=== PATIENT | female | born 1960 | race Caucasian/White ===

== ENCOUNTER 2017-03-07 11:43 | Inpatient (IN) | payer BC ==
[~2017-03-07] VITALS: Ht 157.5 cm; Wt 69.4 kg
[~2017-03-07 11:43] MED LIST: ASPI-621 PO; BACITRACIN 50,000 UNIT ONE; BUPIVACAINE/PF 0.5% ONE; DULO60CA7 PO; EPINEPHRINE 1 MG/ML, 1ML ONE; ESZO3TAB28 PO; LISI-170 PO; MAGN100T6 PO; METH500T7 PO; METH750T2 PO; METO25TA91 PO; THROMBIN 5,000 UNIT VIAL TP ONE
[2017-03-07 12:41] VITALS: BP 117/79
[2017-03-07] MEDS ORDERED: LACTATED RINGERS 1,000 ML IV SCH (12:45)
[2017-03-07] MEDS ORDERED: FENTANYL PF 100 MCG/2ML ONE ×3 (14:06→17:05)
[2017-03-07] MEDS ORDERED: REMIFENTANIL 2 MG ONE (14:06)
[2017-03-07] MEDS ORDERED: MIDAZOLAM 1 MG/ML, 2ML ONE (14:06)
[2017-03-07] MEDS ORDERED: GLYCOPYRROLATE 0.2MG/1ML ONE (14:46)
[2017-03-07] MEDS ORDERED: DEXAMETHASONE 4 MG/ML, 5ML ONE (14:46)
[2017-03-07] MEDS ORDERED: PROPOFOL 10 MG/ML, 20ML ONE ×2 (14:46)
[2017-03-07] MEDS ORDERED: SUCCINYLCHOLINE 20 MG/ML, 10ML ONE (14:46)
[2017-03-07] MEDS ORDERED: ONDANSETRON 2MG/ML, 2ML ONE (14:46)
[2017-03-07] MEDS ORDERED: PHENYLEPHRINE 10 MG/ML ONE (14:46)
[2017-03-07] MEDS ORDERED: CEFAZOLIN 1,000 MG ONE (14:46)
[2017-03-07] MEDS ORDERED: KETAMINE 10 MG/ML, 20ML ONE (14:46)
[2017-03-07] MEDS ORDERED: PNEUMOCOCCAL 23 VACCINE IM-VACC ONE (15:00)
[2017-03-07] MEDS ORDERED: HYDROmorphone 1 MG/ML, 1ML ONE ×2 (16:26→17:05)
[2017-03-07] MEDS: FENTANYL PF 100 MCG/2ML IV PRN ×2 (17:07→17:13)
[2017-03-07] MEDS ORDERED: HYDROmorphone PCA 30 MG/30 ML ONE (17:09)
[2017-03-07] MEDS: HYDROmorphone 1 MG/ML, 1ML IV PRN ×2 (17:15→17:23)
[2017-03-07] MEDS ORDERED: ONDANSETRON 2MG/ML, 2ML IVPush PRN (17:30)
[2017-03-07] MEDS ORDERED: ACETAMINOPHEN 325 MG TABLET PO PRN (17:30)
[2017-03-07] MEDS ORDERED: HYDROmorphone PCA 30 MG/30 ML IV PRN ×2 (17:30→19:30)
[2017-03-07] MEDS ORDERED: DIAZEPAM 5 MG/ML, 2ML IV PRN ×2 (17:30→19:30)
[2017-03-07] MEDS ORDERED: PROMETHAZINE 25 MG/ML, 1ML IV PRN (17:30)
[2017-03-07] MEDS ORDERED: OXYcodone 5 MG/5 ML ORAL.SOL UDC PO PRN (17:30)
[2017-03-07] MEDS ORDERED: MEPERIDINE/PF 25MG/0.5ML IVPush PRN (17:30)
[2017-03-07] MEDS ORDERED: hydrALAzine 20 MG/ML, 1ML IV PRN (17:30)
[2017-03-07] MEDS ORDERED: LABETALOL 5MG/ML, 20ML IV PRN (17:30)
[2017-03-07] MEDS ORDERED: DIPHENHYDRAMINE 25 MG CAPSULE PO PRN (19:30)
[2017-03-07] MEDS ORDERED: DIPHENHYDRAMINE 50 MG/ML, 1ML IVPush PRN (19:30)
[2017-03-07] MEDS ORDERED: HYDROcodone/APAP 5/325 TABLET PO PRN (19:30)
[2017-03-07] MEDS ORDERED: morphine SULFATE 10 MG/ML, 1ML IV PRN (19:30)
[2017-03-07] MEDS ORDERED: BISACODYL 10 MG SUPP PR PRN (19:30)
[2017-03-07] MEDS ORDERED: MAGNESIUM HYDROXIDE 8%, 30ML UDC PO PRN (19:30)
[2017-03-07 19:32] VITALS: BP 114/68
[2017-03-07] MEDS ORDERED: METHOCARBAMOL 750 MG TABLET PO PRN (20:00)
[2017-03-07] MEDS ORDERED: ZOLPIDEM 5MG TABLET PO PRN (20:00)
[2017-03-07] MEDS: ONDANSETRON 2MG/ML, 2ML IV PRN (23:37)
[2017-03-07] MEDS: CEFAZOLIN PMX 1GM/50ML 50 ML IVPB SCH (23:38)
[2017-03-07] MEDS: NS + 20MEQ KCL 1,000 ML IV SCH (23:39)
[2017-03-08 00:30] VITALS: BP 106/64
[2017-03-08] MEDS: OXYcodone/APAP 5/325MG TABLET PO PRN (05:41)
[2017-03-08] MEDS: NS + 20MEQ KCL 1,000 ML IV SCH (08:00)
[2017-03-08] MEDS: DULOXETINE 30 MG CAPSULE.DR PO SCH (08:26)
[2017-03-08] MEDS: CEFAZOLIN PMX 1GM/50ML 50 ML IVPB SCH (08:26)
[2017-03-08] MEDS: SENNA/DOCUSATE TABLET PO SCH (08:26)
[2017-03-08] MEDS: LISINOPRIL 20 MG TABLET PO SCH (08:26)
[2017-03-08 08:30] VITALS: BP 125/79
[2017-03-08] MEDS: ONDANSETRON 2MG/ML, 2ML IV PRN ×2 (08:56→15:10)
[2017-03-08 13:29] VITALS: BP 121/78
[2017-03-08] MEDS ORDERED: SCOPOLAMINE PATCH, 1.5MG PATCH.TD72 TD ONE (17:30)
[2017-03-08] MEDS ORDERED: SODIUM CHLORIDE 0.9%, 500ML IVBOLUS ONE (17:30)
[2017-03-08] MEDS ORDERED: PROMETHAZINE 25 MG/ML, 1ML IM PRN (17:30)
[2017-03-08 20:10] VITALS: BP 117/74
[2017-03-08] MEDS: DIAZEPAM 5 MG TABLET PO PRN (21:47)
[2017-03-08] MEDS ORDERED: DIPHENHYDRAMINE 50 MG/ML, 1ML IVPush PRN (22:00)
[2017-03-08] MEDS ORDERED: DIAZEPAM 5 MG/ML, 2ML IV PRN (22:00)
[2017-03-08] MEDS ORDERED: BISACODYL 10 MG SUPP PR PRN (22:00)
[2017-03-09 02:13] VITALS: BP 106/61
[2017-03-09] MEDS: NS + 20MEQ KCL 1,000 ML IV SCH ×2 (03:40→13:02)
[2017-03-09 07:53] VITALS: BP 93/60
[2017-03-09] MEDS: LISINOPRIL 20 MG TABLET PO SCH (08:18)
[2017-03-09] MEDS ORDERED: METH750T2 PO (08:22)
[2017-03-09] MEDS ORDERED: OXYC1TAB7 PO (08:22)
[2017-03-09] MEDS: DIAZEPAM 5 MG TABLET PO PRN (08:28)
[2017-03-09] MEDS: SENNA/DOCUSATE TABLET PO SCH (08:28)
[2017-03-09] MEDS: DULOXETINE 30 MG CAPSULE.DR PO SCH (08:28)
[2017-03-09 11:17] VITALS: BP 117/65
[2017-03-09] MEDS ORDERED: TIZANIDINE 4MG TABLET PO PRN (12:30)
[2017-03-09] MEDS: OXYcodone/APAP 5/325MG TABLET PO PRN ×2 (14:08→14:38)
[2017-03-09 14:36] VITALS: BP 90/59
[2017-03-09] MEDS ORDERED: TIZA2CAP PO (14:58)
== END 2017-03-09 15:18 | disposition home or self-care (01) | DRG 30 ==
LOC: ORIP 11:43 → 4NOR 18:32
PROVIDERS: ADMIT Neurological Surgery; ATTEND Neurological Surgery
PROC: 0RB30ZZ Excision of Cervical Vertebral Disc, Open Approach (ICD-10-PCS; 2017-03-07)
PROC: 0RG20A0 Fusion of 2 or more Cervical Vertebral Joints with Interbody Fusion Device, Anterior Approach, Anterior Column, Open Approach (ICD-10-PCS; principal; 2017-03-07 15:30)
DX: M54.12 Radiculopathy, cervical region (principal); I10 Essential (primary) hypertension
CPT/HCPCS: 36415; 72040; 72100; 86850; 86900; 90732; C1713; J0171; J0690; J1100; J1170; J2250; J2405; J2550; J2704; J3010; J3360; J3480; J3490; J0330; J2370; J7040